=== PATIENT | male | born 1955 | race Caucasian/White ===

== ENCOUNTER → 2024-07-04 08:11 | Outpatient (CLI) | payer MEDICARE, SELFPAY | PROVIDERS: PCP Family Medicine; Visit Provider Urology | DX: N40.1 Benign prostatic hyperplasia with lower urinary tract symptoms (principal); N13.8 Other obstructive and reflux uropathy; R97.20 Elevated prostate specific antigen [PSA] | CPT/HCPCS: 87086 ==

== ENCOUNTER → 2024-10-03 09:45 | Outpatient (CLI) | payer MEDICARE, SELFPAY | PROVIDERS: PCP Family Medicine; Visit Provider Urology | DX: Z01.818 Encounter for other preprocedural examination (principal); N40.1 Benign prostatic hyperplasia with lower urinary tract symptoms; N13.8 Other obstructive and reflux uropathy; R97.20 Elevated prostate specific antigen [PSA]; Z87.898 Personal history of other specified conditions | CPT/HCPCS: 81002; 87086; 99214 ==

== ENCOUNTER 2024-10-14 06:01 | Day surgery (SDC) | payer MEDICARE, SELFPAY ==
[2024-10-04 14:09] VITALS: BMI 33.0
[2024-10-04 14:20] VITALS: BMI 33.0
[2024-10-14] VITALS (11 sets, daily range): BP systolic 139–173; BP diastolic 80–95; PULSE 6–74; RESP 12–20; TEMP 35.9–36.4; O2SAT 93–98; BMI 32.5
[2024-10-14] MEDS: ACETAMINOPHEN 325 MG TABLET 975 MG PO (06:50)
[2024-10-14] MEDS: LACTATED RINGERS 1,000 ML 42 ML IV ×2 (06:52→10:17)
--- NOTE | 2024-10-14 08:06 | PM.PREOP ---
Pre-operative Note COVID-19 COVID-19 status: Not tested Interval Note History & Physical reviewed/Exam performed by Physician: Yes Changes to H&P: No
[2024-10-14] MEDS: CEFAZOLIN 2 GM/100 ML PREMIX 100 ML IV (09:59)
--- NOTE | 2024-10-14 10:03 | SUR.OPER ---
Lithotomy on padded OR bed, head on pillow, arms secured on padded arm boards at <90 degrees abduction. Legs secured in padded yellow fins stirrups.
[2024-10-14] MEDS: LORazepam 2 MG/ML INJ 0.25 MG IV ×2 (11:50→11:55)
--- NOTE | 2024-10-14 12:25 | SUR.PHASEII ---
Report given to Bharti.
[2024-10-14] MEDS: ONDANSETRON 4 MG/2 ML INJ IV (12:39)
[2024-10-14] MEDS: hydrOXYzine 50 MG/ML INJ 25 MG IM (12:39)
[2024-10-14] MEDS: OXYCODONE IR 5 MG TABLET PO ×2 (12:40→15:12)
--- NOTE | 2024-10-14 13:34 | PM.OP.1 ---
Procedure & Clinicians Procedure: Cystoscopy Aquablation Same procedure as scheduled: Yes Indications: 69 y/o M noted to have symptoms consistent w/ BPH and LUTS that are poorly controlled on Tamsulosin 0.8mg nightly and strongly desires management via an Aquablation procedure. Surgeon: Lavon Valerio Click Yes if Unassisted: Yes Anesthesia Type: General Operative Notes Findings: Coaptating lateral prostatic lobes, no intravesical median lobe, large prostate Closure Type: not applicable Specimen(s): other (prostate chips) Applied: catheter Estimated Blood Loss (mL): 50 Blood products transfused: none Procedure in detail: After informed consent was obtained, the patient was identified brought to the operating room where he was placed in his supine position on the table.? Once there anesthesia was induced and maintained.? Ensuring an adequate level of anesthesia the patient was transitioned to the lithotomy position where after time-out he was prepped.? After prepping, ensuring an adequate level of anesthesia, administration IV antibiotics and time-out 60 cc of ultrasound gel was instilled within the rectum and the ultrasound probe which had been attached to the TRUS stepper which was attached to the TRUS stepper articulating arm which was secured to the bed was advanced into the rectum under direct vision via the ultrasound.? The ultrasound probe was then aligned and confirmation made that the prostate was centered and aligned in both the sagittal and transverse views.? The bladder neck, verumontanum, central and transitional zones were identified.? With the ultrasound in place and adjusted the patient was then draped in a sterile fashion. With the patient draped the 24 German aqua beam handpiece was then inserted through the urethra and advanced into the bladder.? Cystoscopy was then performed and no concerning bladder mass or lesions were noted.? Bilateral ureteral orifices were noted to be orthotopic in nature.? As the cystoscope was advanced the level of the sphincter, verumontanum, bladder neck were all identified via ultrasound and under direct vision.? The aqua beam hand place was then secured to the handpiece articulating arm which had been secured to the bed.? The Aquablation handpiece and TRUS probe were confirmed to be parallel and colinear.? Confirmation was then made that the aqua beam handpiece and nozzle was centered and anterior to the bladder neck.? The cystoscope was then retracted under direct vision in the sphincter and verumontanum were identified.? The tip of the cystoscope was then placed proximal to the external sphincter.? Compression was applied with the TRUS probe to the prostate.? The alignment of the TRUS probe and aqua beam handpiece was once again confirmed.? Horizontal alignment of the handpiece water jet was then performed.? With these adjustments made, the treatment zones were then planned using real-time ultrasound.? In the largest transverse view of the prostate the depth and radial angles were determined and set again in the transverse view of the prostate.? In the longitudinal and sagittal view the Aquablation nozzle was identified and its position registered with the software and robot.? The treatment contours were then determined and adjusted to reflect the intended margins of resection.? Following our plan confirmation, the Aquablation resection treatment was started.? A 2nd pass was then completed in similar fashion after the 1st pass had been completed.? At this point, the Aqua hand piece was removed from the urethra. The 26Fr resectoscope was then inserted into the urethra and cystoscopy was repeated.? The Elik camouflage specialist was utilized to evacuate the blood clots from the bladder.? The bladder neck was then resected using the bipolar Gyrus loop.? Bilateral ureteral orifices were again identified and noted to be intact at case end.? Hemostasis was obtained and noted to be excellent at case end.? The resectoscope was then removed and a 24Fr Kiersten 3-way hematuria catheter was inserted through the urethra and into the bladder.? 50cc of sterile water was utilized for balloon insufflation.? Efflux was noted to be clear at case end.? Anesthesia was reversed, he was extubated in the OR and transferred to the PACU in stable condition for recovery. Complications: none Post-operative Condition: stable Disposition: PACU Plan for aftercare: Will continue to run CBI for a few hours to evaluate the efflux from his catheter.? Should it remain relatively clear and with minimal blood clots, will discharge home with catheter in place and have him return to Urology clinic in 2 days for a voiding trial.? Should his efflux remain red or have significant clot burden, will admit overnight for observation and continued CBI.
== END 2024-10-14 16:45 | disposition home or self-care (01) ==
PROVIDERS: PCP Family Medicine; Referring Provider Urology; Visit Provider Urology
PROC: 0VT08ZZ Resection of Prostate, Via Natural or Artificial Opening Endoscopic (ICD-10-PCS; CPT 0421T; principal; 2024-10-14 07:45)
DX: N40.1 Benign prostatic hyperplasia with lower urinary tract symptoms (principal); N13.9 Obstructive and reflux uropathy, unspecified; R33.9 Retention of urine, unspecified; R39.12 Poor urinary stream; R39.15 Urgency of urination; Z87.891 Personal history of nicotine dependence
CPT/HCPCS: 0421T; C2596; J0690; J2060; J2250; J2405; J2704; J3010; J3410

== ENCOUNTER → 2024-10-16 15:14 | Outpatient (CLI) | payer MEDICARE, SELFPAY | PROVIDERS: PCP Family Medicine; Visit Provider Urology | DX: N40.1 Benign prostatic hyperplasia with lower urinary tract symptoms (principal); N13.8 Other obstructive and reflux uropathy; R97.20 Elevated prostate specific antigen [PSA]; R39.9 Unspecified symptoms and signs involving the genitourinary system | CPT/HCPCS: 51798; 81002; 87086; 99213 ==

== ENCOUNTER → 2024-11-27 08:19 | Outpatient (CLI) | payer MEDICARE, SELFPAY | PROVIDERS: PCP Family Medicine; Visit Provider Urology | DX: N40.1 Benign prostatic hyperplasia with lower urinary tract symptoms (principal); N13.8 Other obstructive and reflux uropathy; R97.20 Elevated prostate specific antigen [PSA] | CPT/HCPCS: 51798; 81002; 87086; 99213 ==

== ENCOUNTER → 2025-07-23 11:59 | Outpatient (CLI) | payer MEDICARE, SELFPAY ==
[2025-07-23 12:43] LABS: Estimated Glomerular Filt Rate > 60 mL/min (>60)
== END ==
PROVIDERS: PCP Family Medicine; Referring Provider Urology; Visit Provider Urology
DX: R10.20 Pelvic and perineal pain unspecified side (principal); R30.0 Dysuria
CPT/HCPCS: 36415; 82565

== ENCOUNTER → 2025-07-28 08:14 | Outpatient (CLI) | payer MEDICARE, SELFPAY ==
--- NOTE | 2025-07-28 08:30 | DI.CT.S_ITS ---
PROCEDURE: CT ABDOMEN PELVIS W CON INDICATIONS: 69 y/o M s/p TURP, worsening dysuria, suprapubic pain TECHNIQUE: After the administration of intravenous contrast, axial sections acquired from the lung bases to the pubic symphysis. Coronal and sagittal reformats were performed. For radiation dose reduction, the following was used: automated exposure control, adjustment of mA and/or kV according to patient size. COMPARISON: None. FINDINGS: Image quality: Diagnostic. Lower Chest: Linear scarring/atelectasis at bilateral lung bases are seen. Heart size is normal, no pericardial effusion. ABDOMEN: Liver: No solid mass. Tiny calcification adjacent to posterior periphery of right hepatic lobe is seen. Gallbladder: No radiopaque gallstones or wall thickening. Biliary ducts: No biliary dilation. Pancreas: No ductal dilation. Spleen: Size is within normal limits. Linear calcifications are noted in posterior and lateral periphery of spleen. Adrenal Glands: No adrenal nodules. Kidneys and Ureters: No hydronephrosis. No solid mass. No complex renal cystic lesion which requires follow up. Stomach and Bowel: There is no bowel obstruction or abnormal bowel wall thickening. Sigmoid diverticulosis without CT evidence of acute diverticulitis. No abscess collection. No mesenteric fat stranding. Peritoneum: No abnormal intraperitoneal fluid. No free air. Ventral Wall: No significant ventral hernia. Abdominal Nodes: No retroperitoneal or mesenteric adenopathy by size criteria. Vessels: Aorta and inferior vena cava are normal in size. PELVIS: Pelvic Organs: Markedly enlarged prostate gland with mass effect on floor of urinary bladder is seen. Bladder: Mild bladder wall thickening, no discrete bladder wall mass or calcified bladder stones. Pelvic Nodes: No enlarged lymph nodes. Miscellaneous: No inguinal hernias are seen. Bones: No aggressive osseous abnormality. Bilateral total hip arthroplasty with significant beam hardening artifacts. IMPRESSION: 1. Enlarged prostate gland with mass effect on floor of urinary bladder. Mild bladder wall thickening which may represent chronic outlet obstruction versus low-grade cystitis. No definite discrete bladder wall mass. 2. No obstructing renal stones are hydronephrosis. 3. No bowel obstruction or abnormal bowel wall thickening. Colonic diverticulosis without CT evidence of acute diverticulitis. No free fluid or free air. 4. Other chronic findings as above. Dictated by: Manny Duarte M.D. on 07/28/2025 at 10:39 Approved by: Manny Duarte M.D. on 07/28/2025 at 10:51
== END ==
LOC: CT 08:15
PROVIDERS: PCP Family Medicine; Referring Provider Urology; Visit Provider Urology
DX: N40.1 Benign prostatic hyperplasia with lower urinary tract symptoms (principal); N13.8 Other obstructive and reflux uropathy; R30.0 Dysuria; R10.20 Pelvic and perineal pain unspecified side
CPT/HCPCS: 74177; Q9967

== ENCOUNTER → 2025-07-30 10:09 | Outpatient (CLI) | payer MEDICARE, SELFPAY | PROVIDERS: PCP Family Medicine; Visit Provider Urology | DX: N40.1 Benign prostatic hyperplasia with lower urinary tract symptoms (principal); N13.8 Other obstructive and reflux uropathy; R97.20 Elevated prostate specific antigen [PSA] | CPT/HCPCS: 87086 ==